=== PATIENT | female | born 1990 | race Caucasian/White ===

== ENCOUNTER 2016-07-08 07:20 | Emergency (ER) | payer BC, OTHER ==
[2016-07-08] MEDS ORDERED: LORazepam INJ* 2 MG/ML 1 ML VIAL IM ONE (08:00)
--- NOTE | 2016-07-08 08:25 | UC ---
Respiratory Complaint HPI - HPI Summary HPI Summary: COUGH X 4 DAYS + CHEST CONGESTION , SORE THROAT, SOB , NO NASAL CONGESTION, NO WHEEZING + FATIGUE, BODY ACHES , NO FEVER, + CHILLS VERY ANXIOUS - History of Current Complaint Chief Complaint: UCRespiratory Stated Complaint: CHEST CONGESTION/COUGH Time Seen by Provider: 07/08/16 07:31 Hx Obtained From: Patient Hx Last Menstrual Period: last week ?: No Onset/Duration: Gradual Onset, Lasting Days - 4, Still Present Timing: Constant Severity Initially: Moderate Severity Currently: Moderate Character: Cough: Nonproductive Aggravating Factors: Exertion, Deep Breaths Alleviating Factors: Nothing Associated Signs And Symptoms: Positive: Chills. Negative: Dyspnea, Fever, Pleuritic Chest Pain, Wheezing, Hemoptysis, Dizziness, Calf Pain, Calf Swelling , Edema, URI, Nasal Congestion, Hoarseness, Sinus Discomfort - Allergies/Home Medications Allergies/Adverse Reactions: Allergies Allergy/AdvReac Type Severity Reaction Status Date / Time No Known Allergies Allergy Verified 07/08/16 07:32 Home Medications: Home Medications [id number] W/ APAP [Tylenol Cold & Flu Severe] 2 tab PO ONCE PRN [History Confirmed 07/08/16] Progesterone Tab 15 mg PO TID 07/08/16 [History Confirmed 07/08/16] PMH/Surg Hx/FS Hx/Imm Hx Previously Healthy: Yes - Surgical History Surgical History: Yes Surgery Procedure, Year, and Place: JAN 2013; T/A; D and C 06/2016 - Family History Known Family History: Negative: Diabetes - Social History Alcohol Use: Occasionally Substance Use Type: None Smoking Status (MU): Never Smoked Tobacco - Immunization History Most Recent Influenza Vaccination: NOT THIS SEASON Review of Systems Constitutional: Chills, Fatigue Skin: Negative Eyes: Negative ENT: Sore Throat Respiratory: Shortness Of Breath, Cough Cardiovascular: Negative Gastrointestinal: Negative Genitourinary: Negative All Other Systems Reviewed And Are Negative: Yes Physical Exam Triage Information Reviewed: Yes Completion Of Physical Exam Limited Due To: Other - ANXIOUS Appearance: No Pain Distress, Obese Vital Signs: Initial Vital Signs Temp 98.1 F 07/08/16 07:25 Pulse 135 07/08/16 07:25 Resp 18 07/08/16 07:25 BP 132/80 07/08/16 07:25 Pulse Ox 97 07/08/16 07:25 Vital Signs Reviewed: Yes Eyes: Positive: Conjunctiva Clear ENT: Positive: Normal ENT inspection, Hearing grossly normal, Pharynx normal, Nasal congestion, Nasal drainage, TMs normal Neck: Positive: Supple, Nontender, No Lymphadenopathy Respiratory: Positive: Chest non-tender, Lungs clear, Normal breath sounds Cardiovascular: Positive: No Murmur, Tachycardia Abdominal Exam: Normal Abdomen Description: Positive: Nontender, Soft Bowel Sounds: Positive: Present Musculoskeletal Exam: Normal Neurological: Positive: Alert Skin: Negative: rashes UC Diagnostic Evaluation - Laboratory O2 Sat by Pulse Oximetry: 97 Respiratory Course/Dx - Differential Dx/Diagnosis Provider Diagnoses: INFLUENZA. ANXIETY Discharge - Discharge Plan Condition: Stable Disposition: HOME Patient Education Materials: Influenza (ED) Referrals: No Primary Care Phys,NOPCP [Primary Care Provider] - Additional Instructions: + INFLUENZA B NO NEED FOR ANTIVIRAL MEDICATION CONT. WITH REST, INCREASE FLUID, TAKE TYLENOL NEEDED FOR PAIN AND FEVER FOLLOW UP WITH YOUR PCP IN 5 DAYS
[2016-07-08] MEDS ORDERED: Ibuprofen TAB* 600 MG PO ONE (08:33)
[2016-07-08 09:15] VITALS: BP 128/76
== END 2016-07-08 09:18 | disposition home or self-care (01) ==
LOC: UCCORT 07:20
DX: J11.1 Influenza due to unidentified influenza virus with other respiratory manifestations (principal); F41.9 Anxiety disorder, unspecified; R06.02 Shortness of breath; E66.9 Obesity, unspecified
CPT/HCPCS: 87502; 93005; 96372; 99212; A9270-GY; G0463; J2060